=== PATIENT | female | born 1985 | race American Indian/Alaskan Native ===

== ENCOUNTER 2017-12-19 16:57 | Emergency (ER) | payer BC ==
[2017-12-19 17:19] VITALS: BP 106/76
--- NOTE | 2017-12-19 21:54 | Emergency Department Report ---
ED Rash HPI - HPI Chief Complaint: Skin Rash Stated Complaint: ITCHING Time Seen by Provider: 12/19/17 21:54 Duration: Today Location: Back, Abdomen, Upper Extremities, Lower Extremities Suspected Cause: Other (soap) Rash Symptoms: Yes Itching (generalized), No Facial Swelling, No Tongue/Oral Swelling, No Breathing Difficulties, No Choking Sensation, No Wheezing/Dyspnea, No Peeling, No Blistering, No Fever, No Lightheaded, No Malaise, No Myalgias Severity: moderate Other History: Patient reports that she is itchy all over and has rash all over from new body soap that she used. She says she is 6 weeks and she is going to be terminating her in 4 days. She states that she tried Benadryl [id number] but it didn't work. Denies any respiratory symptoms. Denies any difficulty swallowing, swelling of tongue or lips. Denies any swelling of her neck. Denies any itching to her throat. ED Review of Systems ROS: Stated complaint: ITCHING Other details as noted in HPI Comment: All other systems reviewed and negative Constitutional: no symptoms reported ENT: denies: throat pain, congestion Respiratory: no symptoms reported Cardiovascular: denies: chest pain, palpitations, dyspnea on exertion, edema, syncope, paroxysmal nocturnal dyspnea Gastrointestinal: denies: abdominal pain, nausea, vomiting, diarrhea, constipation, hematemesis, melena, hematochezia Musculoskeletal: denies: back pain, joint swelling, arthralgia, myalgia Skin: rash, pruritus Neurological: denies: headache, numbness, paresthesias, confusion, abnormal gait , vertigo ED Past Medical Hx - Past Medical History Previous Medical History?: No - Surgical History Past Surgical History?: No - Family History Family history: no significant - Social History Smoking Status: Never Smoker Substance Use Type: None - Medications Home Medications: Home Medications Medication Instructions Recorded Confirmed Last Taken Type Hydrocortisone 0.5% 1 applicatio TP QDAY #1 tube 12/19/17 Unknown Rx [Hydrocortisone 0.5% CREAM] diphenhydrAMINE [Benadryl CAP] 25 mg PO Q8HR PRN #12 capsule 12/19/17 Unknown Rx Rash Exam - Exam General: Vital signs noted. No distress. Alert and acting appropriately. This is a 32-year-old female well-nourished well-developed in no acute distress HEENT: No Periorbital Edema, No Conjuctival Injection, No Chemosis, No Perioral Edema, No Tongue Edema, No Uvular Edema, No Compromised Airway, No Drooling Lungs: Yes Good Air Exchange, Yes Labored Respirations, No Wheezes, No Ronchi, No Stridor, No Cough, No Retractions, No Use of Accessory Muscles, No Other Abnormal Lung Sounds Heart: Yes Regular (S1 and S2.), No Murmur Skin: Yes Urticarial Rash (generalized to anterior posterior torso and upper and lower extremity), Yes Maculopapular Rash, Yes Erythema, No Morbilliform rash , No Bulla(e), No Excoriations, No Weeping, No Tenderness, No Edema, No Encrustations, No Other Other: Positive: Abdomen Normal, Neurologic Normal, Musculoskeletal Normal ED Course Vital Signs 12/19/17 17:15 Temperature 98.4 F Pulse Rate 100 H Respiratory 16 Rate Blood Pressure 106/76 O2 Sat by Pulse 98 Oximetry - Reevaluation(s) Reevaluation #1: 12/19/17 22:47 Patient given Benadryl 25 mg IM in emergency room for allergic reaction ED Medical Decision Making - Medical Decision Making ED course: Patient with presentation of rash to anterior posterior torso, upper and lower extremities after using new body soap. She does not have any respiratory symptoms and her oral exam is normal. Patient is 6 weeks and reports that she is going to be terminating her is 4 days. I discussed with her that she is still at this moment I cannot give her anything that will hurt the baby. I discussed with her that I will give her Benadryl and low percentage topical steroid. She agreed to plants. Patient given Benadryl 25 mg IM in the emergency room for itching and minor allergic reaction localized to skin. Discharged home in stable condition with prescription for Benadryl and cortisone 1% cream follow up with her primary care physician in 2 days or to return to the emergency room if symptoms worsen and she developed shortness of breath, difficulty breathing, cough and itchy throat swelling of tongue or face. Critical care attestation.: If time is entered above; I have spent that time in minutes in the direct care of this critically ill patient, excluding procedure time. ED Disposition Clinical Impression: Pruritic dermatitis Minor allergic reaction Qualifiers: Encounter type: initial encounter Qualified Code(s): T78.40XA - Allergy, unspecified, initial encounter Disposition: TO HOME OR SELFCARE Is pt being admited?: No Does the pt Need Aspirin: No Condition: Stable Instructions: Urticaria (ED), Diphenhydramine (By mouth) Additional Instructions: Take Benadryl for itching and minor allergic reaction to skin but please do not drive or operate heavy machinery while taking this medication If you're allergic reaction symptoms come back or progressive please return to the emergency room JUDY If you develop swollen tongue, hoarse voice, itch into throat, wheezing, stridor and increase in rash please return to the emergency room otherwise follow-up with your primary care physician in 24 hours if you do not have a primary care physician follow-up at [facility]. Prescriptions: diphenhydrAMINE [Benadryl CAP] 25 mg PO Q8HR PRN #12 capsule PRN Reason: Allergic Reaction Hydrocortisone 0.5% [Hydrocortisone 0.5% CREAM] 1 applicatio TP QDAY #1 tube Referrals: GIRISH LUU MD [Primary Care Provider] - 3-5 Days Forms: Work/School Release Form(ED)
[2017-12-19] MEDS ORDERED: BENADRYL IM ONE (22:47)
== END 2017-12-19 23:05 | disposition home or self-care (01) ==
LOC: ED 16:57
DX: O26.891 Other specified pregnancy related conditions, first trimester (principal); T78.40XA Allergy, unspecified, initial encounter; L30.8 Other specified dermatitis; Z3A.01 Less than 8 weeks gestation of pregnancy
CPT/HCPCS: 96372; 99282; J1200